=== PATIENT | male | born 1970 | race Caucasian/White ===

== ENCOUNTER 2024-10-04 15:10 | Emergency (ER) | payer OTHER, SELFPAY ==
[2024-10-04 15:13] VITALS: BP 146/95; PULSE 50; RESP 16; TEMP 36.7; O2SAT 97
--- NOTE | 2024-10-04 15:24 | ED.WOUNDLAC ---
HPI - Wound/Laceration General Chief Complaint: Wound/Laceration Stated Complaint: lac to left hand Time Seen by Provider: 10/04/24 15:24 Source: patient Mode of arrival: ambulatory Limitations: no limitations History of Present Illness HPI narrative: this is a 54-year-old male presents with laceration to the anterior surface of his left hand well-approximated currently below bleeding that occurred earlier today while using a blade soft at work. No other injuries noted up-to-date with his tetanus no numbness or tingling in his fingers. Onset (ago): hour(s) Location: other Extremity Location: Left: hand ( well approximated anterior and laceration) Place: work Patient tetanus UTD: Yes Context: accidental Associated symptoms: none Related Data Allergies Allergy/AdvReac Type Severity Reaction Status Date / Time Penicillins Allergy Mild Rash Verified 10/04/24 15:24 Review of Systems Review of Systems: All systems reviewed & are unremarkable except as noted in HPI and below PMFSH Past Medical History Medical History Patient denies medical problems Exam Const: General: healthy appearing and no acute distress Nutritional Appearance: well nourished Orientation/consciousness: patient oriented x3 Chest: Chest palpation & inspection: normal inspection of the chest Resp: Effort & Inspection: normal respiratory effort Auscultation: clear to auscultation bilaterally Cardio: Rhythm: regular rhythm GI: GI Palp: Yes Soft to palpation Skin: General skin exam: normal color Other: 2cm laceration well approximated anterior left hand. Neuro: General: patient oriented x3 and moves all extremities Course Course Emergency Course: Well-approximated 2cm laceration that was repaired with Dermabond patient up-to-date with his tetanus. Vital Signs Vital signs: Vital Signs Temperature 36.7 C 10/04/24 15:13 Pulse Rate 50 L 10/04/24 15:13 Respiratory Rate 16 10/04/24 15:13 Blood Pressure 146/95 H 10/04/24 15:13 Pulse Oximetry 97 10/04/24 15:13 Oxygen Delivery Room Air 10/04/24 15:13 Temperature 36.7 C 10/04/24 15:13 Pulse Rate 50 L 10/04/24 15:13 Respiratory Rate 16 10/04/24 15:13 Blood Pressure 146/95 H 10/04/24 15:13 Pulse Oximetry 97 10/04/24 15:13 Oxygen Delivery Room Air 10/04/24 15:13 Procedures Laceration Laceration 1: Date: 10/04/24 Time: 15: Site: upper extremity Side (If applicable): left Size (cm): 2 Description: linear Depth: simple, single layer Pre-repair: wound explored ====== Skin Level ====== Skin layer closed with: dermabond ====== Subcutaneous Layer ====== ====== Muscle Layer ====== ====== Tendon Layer ====== Critical Care Time Critical Care Time Critical Care Time: No Discharge Plan Discharge Clinical Impression: Laceration Patient Disposition: Home, Self-Care Condition: Stable Instructions: Antibiotic Form, Laceration (ED), Skin Adhesive Care (ED) Additional Instructions: Can use Tylenol or Motrin as needed for pain and follow up with primary if symptoms persist or worsen. Patient Language: Gibraltarian Follow-up/Referrals: UNKNOWN,DOCTOR [Primary Care Provider] - Time of Disposition: 15:27
--- OUTSIDE RECORDS SUMMARY | 2024-10-04 15:37 | XMS_ITS | Referral Summary ---
Author Organization [facility] Address [address] [place] [address] Care Team Providers Care Insulation Sprayer Name Role Phone Chuck Pond MD Primary Care Provider Allergies Active Allergy Reactions Criticality Noted Date Comments Penicillins Other (See comments) Low Was told as a child Medications No known medications Active Problems Problem Noted Date Diagnosed Date Chronic bilateral low back pain without sciatica 03/03/2022 Lumbar radiculopathy 03/03/2022 DDD (degenerative disc disease), lumbar 03/02/20 Lumbar facet arthropathy 03/02/2022 Left groin hernia 12/17/2021 Assessment & Plan (12/17/2021 9:24 AM CDT): There may be a small inguinal impulse felt on the left but is quite difficult to tell. Some of his symptoms are consistent with a hernia while others such as the buttock and thigh pain are less indicative of that. I am going to start by repeating the CT scan as it has been over 5 years. If no sign of recurrence of the pain will discuss further options typically with some kind of neurologic workup. BMI 32.0-32.9,adult 02/24/2017 Assessment & Plan (02/24/2017 4:09 PM CDT): Recommended patient to continue to increase heart healthy diet with adequate fruits, vegetables, and plenty of water along with mild-moderate daily exercise as tolerated. Resolved Problems Problem Noted Date Diagnosed Date Resolved Date Midline thoracic back pain 03/10/2017 0 11/24/2020 Assessment & Plan (03/10/2017 4:56 PM CDT): Resolved without recurrence. Epigastric pain 02/24/2017 11/24/2020 Assessment & Plan (03/10/2017 4:51 PM CDT): Patient notes significant improvement after adjusting Prilosec to prior to dinner as directed during his office visit. He will continue Prilosec for the next 3 months. He will then trial off the medication and evaluate his response. We talked about upper endoscopy with persistent complaints. He declines due to his nice response with increased PPI compliance. Assessment & Plan (03/03/2017 5:15 PM CDT): We reviewed patient's prior diagnostic testing in detail. I agree he should proceed with CT scan as scheduled. He has a appointment for CT scan of the abdomen on TuesdayMarch 08. He is to return within 7-10 days to review results and determine next step. In the interim, he is encouraged to resume Prilosec as previously recommended. He was encouraged to maintain a very bland/bratty diet. This was discussed in detail. Assessment & Plan (02/24/2017 4:24 PM CDT): I advised patient would like to go ahead and start to check and see if it is gallbladder related with a right upper quadrant ultrasound along with checking liver and pancreatic functions. I also added a CBC to see if there was any increase in the white count as well. We will see patient here in a week to see how everything is going. I a.m. prescribe omeprazole to see if that might even help a little considering it sometimes presents after breakfast. I did advise him however if pain is worse if it changes in any way to come back in to our office, or certainly go to ER, and to get evaluated for other etiologies causing pain Cellulitis 03/26/2015 11/24/2020 Overview (10/22/2016): Cellulitis Immunizations Immunization Administration Dates Next Due Influenza, Unspecified 12/19/2023(Deferr ed: Patient Refused),12/14/2022(Deferred: Patient Refused),04/17/2021(Deferred: Patient Refused),04/17/2020(Deferred: Patient Refused),09/25/2019(Deferred: Patient Refused),04/17/2019(Deferred: Patient Refused) Td, adsorbed 07/18/2002 Social History Tobacco Use Types Packs/Day Years Used Date Smoking Tobacco: Never Smokeless Tobacco: Never Tobacco Cessation:Counseling Given: Yes Alcohol Use Standard Drinks/Week Comments No 0 (1 standard drink = 0.6 oz pur e alcohol) AUDIT-C Answer Date Recorded Q1: How often do you have a drink containing alcohol? Never 01/06/2024 Q2: How many drinks containi ng alcohol do you have on a typical day when you are drinking? Patient does not drink Q3: How often do you have si x or more drinks on one occasion? 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 Gender Identity Not on file Sexual Orientation Not on file Last Filed Vital Signs Vital Sign Reading Time Taken Comments Blood Pressure 112/72 01/06/2024 3:45 PM CDT Pulse 53 01/06/2024 3:45 PM CDT Temperature 30.6 C (87 F) 01/06/2024 3:45 PM CDT Respiratory Rate 16 01/06/2024 3:45 PM CDT Oxygen Saturation 96% 01/06/2024 3:45 PM CDT Inhaled Oxygen Concentration - - Weight 109.3 kg (241 lb) 01/06/2024 3:45 PM CDT Height 182.9 cm (6') 01/06/2024 3:45 PM CDT Body Mass Index 32.69 01/06/2024 3:45 PM CDT Plan of Treatment Not on file Procedures Procedure Name Priority Date/Time Associated Diagnosis Comments PSA SCREEN Routine 12/09/2023 6:45 AM CDT Annual physical exam STOOL DNA COLOGUARD Routine 12/20/2022 6:15 PM CDT Special screening for malignant neoplasms, colon Screening for malignant neoplasm of the rectum from Last 3 Months or Most Recently Relevant to Health Maintenance Results * PSA screen (12/09/2023 6:45 AM CDT) PSA-Total 0.48 <=3.90 ng/mL Comment: Interpretive Data AGE SEX REFERENCE INTERVAL 0 minutes-150 years Female None 0 minutes-49 years Male None 50-59 years Male 0-3.90 60-69 years Male 0-5.40 70-79 years Male 0-6.20 80-150 years Male 0-6.20 The Ash PSA Total assay procedure was used. Results from different manufacturers or methods may not be comparable. Serial testing should be performed using the same method. Current interpretive data last revised 21. Blood 12/09/2023 6:45 AM CDT 12/09/2023 7:45 AM CDT Chuck Pond MD LAB BLOOD ORDERABLES nal Result Performing Organization Address City/State/[facility] Co de Phone Number [facility] [address] [facility] Department [place] [address] * Stool DNA - Cologuard (12/20/2022 6:15 PM CDT) Pathologist [facility] Stool DNA - Cologuard Negative Negative [facility] (CLIA #:[id number]) Comment: NEGATIVE TEST RESULT. A negative Cologuard result indicates a low likelihood that a colorectal cancer (CRC) or advanced adenoma (adenomatous polyps with more advanced pre-malignant features) is present. The chance that a person with a negative Cologuard test has a colorectal cancer is less than 1 in 1500 (negative predictive value >99.9%) or has an advanced adenoma is less than 5.3% (negative predictive value 94.7%). These data are based on a prospective cross-sectional study of 10,000 individuals at average risk for colorectal cancer who were screened with both Cologuard and colonoscopy. (Kleber Garcia al, N Engl J Med 2014;370(14):7374-3264) The normal value (reference range) for this assay is negative. COLOGUARD RE-SCREENING RECOMMENDATION: Periodic colorectal cancer screening is an important part of preventive healthcare for asymptomatic individuals at average risk for colorectal cancer. Following a negative Cologuard result, the [place] Cancer Society and U.S. Multi-Society Task Force screening guidelines recommend a Cologuard re-screening interval of 3 years. References: [place] [employer] Society Guideline for Colorectal Cancer Screening: https://www.cancer.org/cancer/dhxya-vtgmuq-qgopwb/cjamhpurx-jaieodchs-uegyfoa/ac s-rec ommendations.html.; Gino DK, Dipesh KELLY, Avery JuárezK, Colorectal Cancer Screening: Recommendations for Physicians and Patients from the U.S. Multi-Society Task Force on Colorectal Cancer Screening , Am J Gastroenterology 2017; 112:1481-0816. TEST DESCRIPTION: Composite algorithmic analysis of stool DNA-biomarkers with hemoglobin immunoassay. Quantitative values of individual biomarkers are not reportable and are not associated with individual biomarker result reference ranges. Cologuard is intended for colorectal cancer screening of adults of either sex, 45 years or older, who are at average-risk for colorectal cancer (CRC). Cologuard has been approved for use by the U.S. FDA. The performance of Cologuard was established in a cross sectional study of average-risk adults aged 50-84. Cologuard performance in patients ages 45 to 49 years was estimated by sub-group analysis of near-age groups. Colonoscopies performed for a positive result may find as the most clinically significant lesion: colorectal cancer [4.0%], advanced adenoma (including sessile serrated polyps greater than or equal to 1cm diameter) [20%] or non- advanced adenoma [31%]; or no colorectal neoplasia [45%]. These estimates are derived from a prospective cross-sectional screening study of 10,000 individuals at average risk for colorectal cancer who were screened with both Cologuard and colonoscopy. (Kleber Garcia al, N Engl J Med 2014;370(14):5019-9580.) Cologuard may produce a false negative or false positive result (no colorectal cancer or precancerous polyp present at colonoscopy follow up). A negative Cologuard test result does not guarantee the absence of CRC or advanced adenoma (pre-cancer). The current Cologuard screening interval is every 3 years. ([place] Cancer Society and U.S. Multi-Society Task Force). Cologuard performance data in a 10,000 patient pivotal study using colonoscopy as the reference method can be accessed at the following location: www.F[employer]rugal.Exajoule/results. Additional description of the Cologuard test process, warnings and precautions can be found at www.cologuard.com. Stool 12/20/2022 6:15 PM CDT 12/22/2022 9:02 PM CDT us Chuck Pond MD LAB BODY FLUIDS AND STO OLS ORDERABLES Final Result [facility] (CLIA #:[id number]) [address] [place] [address] from Last 3 Months or Most Recently Relevant to Health Maintenance Insurance [facility] CHO[facility] PLUS [facility] CHO[facility] PLUS [place] [id number] [facility] CHOICE PLUS Care Teams Insulation Sprayer Relationship Specialty Start Date End Date Chuck Pond MD PCP - General 11/20/15
--- OUTSIDE RECORDS SUMMARY | 2024-10-04 15:37 | XMS_ITS | Clinical Summary ---
Author Organization [facility] Address [address] [place] [address] Care Team Providers Care Inserting Machine Operator Name Role Phone Chuck Pond MD Primary Care Provider Source Comments [facility],non-owned Affiliates and Associated Physician Practices is amultiple site organization consisting of ambulatory clinics and hospital sitesin [place], [place], [place] and [place]. This disclosure is being madepursuant to the Care Everywhere program and may not contain all information available regarding this patient. Last updated 18.[facility] Allergies Active Allergy Reactions Criticality Noted Date Comments Penicillins Unknown 12/30/2018 Medications Be aware that medications may not be up to date on this document. Always verify current medications with the patient. No known medications Active Problems Problem Noted Date Diagnosed Date Closed fracture of tuft of d istal phalanx of left thumb with routine healing 01/04/2019 Social History Tobacco Use Types Packs/Day Years Used Date Smoking Tobacco: Never Smokeless Tobacco: Never Alcohol Use Standard Drinks/Week Comments Yes 0 (1 standard drink = 0.6 oz pur e alcohol) Sex and Gender Information Value Date Recorded Sex Assigned at Not on file Gender Identity Not on file Sexual Orientation Not on file Last Filed Vital Signs Vital Sign Reading Time Taken Comments Blood Pressure 116/62 12/30/2018 4:13 PM CDT Pulse 54 12/30/2018 4:13 PM CDT Temperature 36.9 C (98.4 F) 12/30/2018 11:41 AM CDT Respiratory Rate 16 12/30/2018 4:13 PM CDT Oxygen Saturation 100% 12/30/2018 4:13 PM CDT Inhaled Oxygen Concentration - - Weight 102.1 kg (225 lb) 02/22/2019 10:18 AM CDT Height 182.9 cm (6') 02/22/2019 10:18 AM CDT Body Mass Index 30.52 02/22/2019 10:18 AM CDT Plan of Treatment Health Maintenance Due Date Last Done Comments COLOGUARD (AGES 45-75) - COL ON CA SCREENING 1968 COLON MONITORING 1968 COLONOSCOPY - COLON CA SCREENING 1968 CT COLONOGRAPHY - COLON CA SCREENING 1968 Colorectal Cancer Screening 1968 FIT - COLON CA SCREENING 1968 FLEX SIG - COLON CA SCREENING 1968 LIPID TESTING 1968 HIV SCREENING 1983 HEPATITIS C SCREENING 09/09/1986 DTAP/TDAP/TD VACCINES (1 - Tdap) 1987 HEPATITIS B VACCINE (1 of 3 - 19+ 3-dose series) 1987 PNEUMOCOCCAL VACCINE 50+ (1 of 1 - PCV) 2018 ZOSTER VACCINE (1 of 2) 2018 SCREENING FOR DIABETES 01/04/2019 COVID-19 VACCINE (1 - 2023-2 5 season) 2024 INFLUENZA VACCINE (#1) 2024 DEPRESSION SCREENING 07/18/2024 HIB VACCINE Aged Out No longer eligi ble based on patient's age to complete this topic HPV VACCINE Aged Out No longer eligi ble based on patient's age to complete this topic MENINGOCOCCAL (Group B) VACC INE SHARED DECISION-MAKING Aged Out No longer eligibl e based on patient's age to complete this topic MENINGOCOCCAL GROUPS A/C/Y/W VACCINE Aged Out No longer eligible b ased on patient's age to complete this topic PNEUMOCOCCAL VACCINE Aged Out No long er eligible based on patient's age to complete this topic Care Teams Inserting Machine Operator Relationship Specialty Start Date End Date Chuck Pond MD [address] [facility] [address] [place] [address] PCP - General 01/04/19
--- OUTSIDE RECORDS SUMMARY | 2024-10-04 15:37 | XMS_ITS | Continuity of Care Document ---
Author Organization [facility] [place] [address] [place] [address] Phone Care Team Providers Care Manager Laboratory Name Role Phone Aureliano Murphy MD, FACS Unavailable Unavailab le Allergies, Adverse Reactions, Alerts Substance Reaction Status Criticality PENICILLIN Active No Information Procedures Procedure Date Fundus Photography W/ Report No Charge Refraction Eye Exam, New Patient Advance Directives Directive Yes / No Effective Date File Name No Information Encounters Encounter Description Practice Location Reason(s) For Visit Diagnoses Date Provider Providers Copied on Encounter [facility], [facility] [email or web address], [place], [place], [id number], tel:[phone] SEC Kenia Katz No Information [address], [place], [place], [address], [place]. tel:[phone] [facility], [address], [place], [place], [address], tel:[phone] SEC Kenia Katz YAG evaluation (chief complaint) Age-related nuclear cataract, left eyePresence of intraocular lensRhegmatog enous retinal detachment of right eye [address]. [address], [place], [place], [address], [place]. tel:[phone] Specialist: Geovanni Bailey MD, [address] [place] [address], [place], [address]. tel:[phone] Provider: Neelam Williamson, [facility] [address], [place], [address]. tel:[phone] Family History Family Member Type Diagnosis Age At Onset Problem Family history of Diabetes m jodie Payers Payer name Insurance type Covered republican ID Noah estrada(s) [facility] CI [id number] Social History Type Description Quantity Date Captured Comments Alcohol Use Details Unknown Caffeine Use Details Unknown Tobacco Use Status No Information Smoking Status No Information Sex Male Chief Complaint And Reason For Visit No Information Reason For Referral Reason For Referral No Information Plan Of Treatment Date Type Action Status Referral Referred To: Lynn TANG, Geovanni [address] [facility]
[address] [place], [place], [phone] Ordered: Referrals: Allopathic & Osteopathic Physicians : Ophthalmology. Lynn TANG, Geovanni. Consult ordered Patient Education Retinal Detachment: Car e Instructions completed History Of Present Illness Encounter Date Complaint History Of Prese nt Illness YAG evaluation The 50 year old male presents for evaluation of YAG evaluation in the right eye. Hx of PCIOL OD (due to thorn poked in OD). Pt reports he doesn't use any gtts, OU. Pt reports LORAINE was 07/2020 and everything was fine at that time but he started having issues with OD about a couple weeks after exam. Pt reports he has trouble recognizing people's faces from a distance, trouble driving during the daytime and reading small print up close and upper part of [place] is cloudy, gradually getting worse since July. Functional Status Date Functional Assessmen t No Information Instructions Date Instruction Additional Infor mation Impression/Plan Assessments Type Assessment Date No Information Patient Care Teams Name Effective Dates (start - stop) Status Members No Information
--- OUTSIDE RECORDS SUMMARY | 2024-10-04 15:37 | XMS_ITS | Clinical Summary ---
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 rotator cuff surgery FOOT SURGERY left foot surgery OTHER SURGICAL HISTORY rt. eye surgery HERNIA REPAIR 07/18/2009 - 07/17/2010 Herniorrhaphy EYE SURGERY Medical History Medical History Date Comments Hx Other Medical 07/05/2011 BL hernia 2009 and 2010; Comments: Hernia surgery June 2010, one side. One year later, the other side was repaired Family History Medical History Relation Name Comments Other Brother 2 Alive and well; Other Father Alive and well; Diabetes Mother Diabetes mellit us; Other Mother Alive and well; Relation Name Status Comments Brother 1 Alive Brother 2 Father Alive Mother Alive Social History Tobacco Use Types Packs/Day Years [...] on file Legal Sex Male 12:54 AM [employer] Gender Identity Not on file Sexual Orientation Not on file Obstetrics History Last Filed Vital Signs Vital Sign Reading [...] 01/06/2024 3:45 PM CDT Plan of Treatment Health Maintenance Due Date Last Done Comments Hepatitis C Screening 1970 Hepatitis B Screening 1986 DTaP/Tdap/Td Vaccine (1 - Tdap) 07/19/2002 07/18/2002 Zoster Vaccine (1 of 2) 2018 Covid-19 Vaccine (3 - season) 2024 05/26/2021, 04/28/2021 Influenza Vaccine (#1) 2024 Prostate Cancer Screening-PSA 12/08/2024 12/09/2023, 12/03/2022, 11/13/2021, Additional history exists Regular Well Visit/Exam 18-64 12/18/2024 12/19/2023, 12/14/2022, 11/26/2021, Additional history exists Depression Screening 01/05/2025 01/06/2024, 03/03/2022, 03/03/2022, Additional history exists Colon Cancer Screening-DNA Stool 12/20/2025 12/20/2022, 12/06/2019 Colon Cancer Screening-FIT Discontinued 12/20/2022, Pneumococcal vaccine <65 Aged Out No longer eligible based on patient's age to complete this topic Procedures Procedure Name Priority Date/Time Associated Diagnosis [...] 6:45 AM CDT 12/09/2023 7:45 AM CDT us Chuck Pond MD LAB BLOOD ORDERABLES Fi nal Result TIMOTHY SALMERON (HERALD) 1 [facility] Department [place] [address] * Stool DNA - Cologuard (12/20/2022 6:15 PM CDT) Stool DNA - Cologuard Negative Negative [facility] (CLIA #:[id number]) Comment: NEGATIVE TEST RESULT. A negative Cologuard [...] (Kleber Garcia al, N Engl J Med 2014;370(14):6763-2275) The normal value (reference range) for this assay is negative. COLOGUARD RE-SCREENING RECOMMENDATION: Periodic colorectal cancer screening is an important part of preventive healthcare for asymptomatic individuals at average risk for colorectal cancer. Following a negative Cologuard result, the [place] [employer] and U.S. Multi-Society Task Force screening guidelines recommend a Cologuard re-screening interval of 3 years. References: [place] [employer] Guideline for Colorectal Cancer Screening: https://www.cancer.org/cancer/pkvgs-uftcqd-clkbwq/mzjwkpgqf-anxljmews-rlpgfax/ac s-rec ommendations.html.; Gino BERNABE, Dipesh KELLY, Avery JuárezK, Colorectal Cancer Screening: Recommendations for Physicians and Patients from the U.S. Multi-Society Task Force on Colorectal Cancer Screening , Am J Gastroenterology 2017; 112:9553-0003. TEST DESCRIPTION: Composite algorithmic analysis of stool [...] screened with both Cologuard and colonoscopy. (Kleber Miller et al, N Engl J Med 2014;370(14):3159-6995.) Cologuard may produce a false negative or false positive result (no colorectal cancer or precancerous polyp present at colonoscopy follow up). A negative Cologuard test result does not guarantee the absence of CRC or advanced adenoma (pre-cancer). The current Cologuard screening interval is every 3 years. ([place] [employer] Society and U.S. Multi-Society Task Force). Cologuard performance data in a 10,000 patient pivotal study using colonoscopy as the reference method can be accessed at the following location: www.[employer].WisdomTree/results. Additional description of the Cologuard test process, warnings and precautions can be found at www.cologuard.com. Stool 12/20/2022 6:15 PM CDT 12/22/2022 9:02 PM CDT Chuck Pond MD LAB BODY FLUIDS AND STO OLS ORDERABLES Final Result [facility] (CLIA #:[id number]) [place] [address] [place] [address] from Last 3 Months or Most Recently Relevant to Health Maintenance Insurance [employer] [place] [id number] Care Teams Spring Crater Relationship Specialty Start Date End Date Chuck Pond MD PCP - General 11/20/15
--- OUTSIDE RECORDS SUMMARY | 2024-10-04 15:42 | XMS_ITS | Continuity of Care Document ---
Author Organization [facility] Address [address] [place] [address] Phone Care Team Providers Care Registered Massage Therapist Name Role Phone Aureliano Murphy MD, FACS Unavailable Unavailab le Allergies, Adverse Reactions, Alerts Substance Reaction Status Criticality PENICILLIN Active No Information Procedures Procedure Date Fundus Photography W/ Report No Charge Refraction Eye Exam, New Patient Advance Directives Directive Yes / No Effective Date File Name No Information Encounters Encounter Description Practice Location Reason(s) For Visit Diagnoses Date Provider Providers Copied on Encounter [facility], [facility] [address], [place], [place], [id number], tel:[phone] SEC Kenia Katz No Information 1 Jeffrey Bedoya. [id number] [employer] [address], [place], [place], [id number], [place]. tel:[phone] [facility], [id number], [place], [place], [id number], tel:[phone] SEC Kenia Katz YAG evaluation (chief complaint) Age-related nuclear cataract, left eyePresence of intraocular lensRhegmatog enous retinal detachment of right eye 1 Jeffrey [address]oya. [id number] [employer] [address], [place], [place], [id number], [place]. tel:[phone] Specialist: Geovanni Bailey MD, [address] [place] [address], [place], [address]. tel:[phone] Provider: Neelam Williamson, [facility] [address], [place], [address]. tel:[phone] Family History Family Member Type Diagnosis Age At Onset Problem Family history of Diabetes m jodie Payers Payer name Insurance type Covered democrat ID Noah estrada(s) [facility] CI [id number] Social History Type Description Quantity Date Captured Comments Alcohol Use Details Unknown Caffeine Use Details Unknown Tobacco Use Status No Information Smoking Status No Information Sex Male Chief Complaint And Reason For Visit No Information Reason For Referral Reason For Referral No Information Plan Of Treatment Date Type Action Status Referral Referred To: Lynn TANG, Geovanni [address] [facility]
Ken [address] [place], [place], [phone] Ordered: Referrals: Allopathic & Osteopathic Physicians : [...]
== END 2024-10-04 15:40 | disposition home or self-care (01) ==
LOC: CHSED 15:31
PROVIDERS: Emergency Provider Emergency Medicine; PCP Internal Medicine
DX: S61.412A Laceration without foreign body of left hand, initial encounter (principal); W26.8XXA Contact with other sharp object(s), not elsewhere classified, initial encounter; Y99.0 Civilian activity done for income or pay
CPT/HCPCS: 12001; 99282